=== PATIENT | female | born 1980 | race American Indian/Alaskan Native ===

== ENCOUNTER 2016-10-14 20:52 | Emergency (ER) | payer SELFPAY ==
[2016-10-14 22:27] LABS: Anion Gap 16 mmol/L; Blood Urea Nitrogen 3 mg/dL (7-17); Calcium 7.8 mg/dL (8.4-10.2); Carbon Dioxide 26 mmol/L (22-30); Chloride 101.4 mmol/L (98-107); Glucose 93 mg/dL (65-100); Potassium 3.5 mmol/L (3.6-5.0); Sodium 140 mmol/L (137-145)
[2016-10-14 22:32] LABS: Basophils % (Auto) 0.4 % (0.0-1.8); Eosinophils % (Auto) 0.7 % (0.0-4.3); Hematocrit 34.9 % (30.3-42.9); Hemoglobin 11.5 gm/dl (10.1-14.3); Mean Corpuscular HGB Conc 33 % (30-34); Mean Corpuscular Hemoglobin 27 pg (28-32); Mean Corpuscular Volume 81 fl (79-97); Platelet Count 351 K/mm3 (140-440); Red Blood Count 4.29 M/mm3 (3.65-5.03); White Blood Count 4.8 K/mm3 (4.5-11.0)
[2016-10-15] MEDS ORDERED: ZOFRAN IV ONE (09:06)
[2016-10-15] MEDS ORDERED: NACL 0.9% 1000 ML 1,000 ML IV ONE (09:07)
[2016-10-15] MEDS ORDERED: MORPHINE IV ONE ×2 (09:07→12:14)
[2016-10-15 09:37] VITALS: BP 115/72
--- NOTE | 2016-10-15 09:43 | Emergency Department Report ---
HPI - General Chief Complaint: Chest Pain Time Seen by Provider: 10/15/16 08:50 - HPI HPI: This is a 36-year-old -[place]ux[place]bour[place] female presents to the emergency department with complaint of a 4 day history of nausea and vomiting and a more chronic complaint of some pain below the left breast that has been going on for many weeks. It is associated with shortness of breath but she denies any cough , fever, back pain. Patient says that she has a history of pneumonia in the left lung 2 months ago. She denies any tobacco abuse. She denies illicit drug use. She is not taken anything for symptoms prior to presentation. She has a past medical history of lupus and a past surgical history of gastric bypass. No recent travel or sick contacts at home. ED Past Medical Hx - Past Medical History Previous Medical History?: Yes Additional medical history: lupus - Surgical History Past Surgical History?: Yes Additional Surgical History: gastric bypass - Social History Smoking Status: Never Smoker Substance Use Type: None - Medications Home Medications: Home Medications Medication Instructions Recorded Confirmed Last Taken Type HYDROcodone/APAP 5-325 [Carrington 1 each PO Q6H PRN #10 tablet 10/15/16 Unknown Rx 5-325 mg TAB] Ondansetron [Zofran Odt] 4 mg PO Q8H PRN #10 tab.rapdis 10/15/16 Unknown Rx ED Review of Systems ROS: Stated complaint: CHEST PAIN Other details as noted in HPI Comment: All other systems reviewed and negative Constitutional: denies: chills, fever Eyes: denies: eye pain, eye discharge, vision change ENT: denies: ear pain, throat pain Respiratory: shortness of breath. denies: cough Cardiovascular: chest pain. denies: palpitations Gastrointestinal: nausea, vomiting Genitourinary: denies: urgency, dysuria, discharge Musculoskeletal: denies: back pain, joint swelling, arthralgia Skin: denies: rash, lesions Neurological: denies: headache, weakness, paresthesias Physical Exam - Physical Exam Vital Signs: Vital Signs 10/14/16 10/14/16 10/15/16 21:03 21:17 09:36 Temperature 98.8 F 98.8 F 98.9 F Pulse Rate 107 H 107 H 89 Respiratory 20 18 16 Rate Blood Pressure 141/92 Blood Pressure 141/92 115/72 [Right] O2 Sat by Pulse 100 100 100 Oximetry 10/15/16 09:38 Temperature Pulse Rate Respiratory 16 Rate Blood Pressure Blood Pressure [Right] O2 Sat by Pulse 100 Oximetry Physical Exam: GENERAL: The patient is well-developed well-nourished. HEENT: Normocephalic. Atraumatic. Extraocular motions are intact. Patient has moist mucous membranes. Pupils equal reactive to light bilaterally. NECK: Supple. Trachea is midline. CHEST/LUNGS: Clear to auscultation. There is no respiratory distress noted. Left lower midsternal chest pain is reproducible to palpation of chest wall. HEART/CARDIOVASCULAR: Regular. There is no tachycardia. There is no gallop rub or murmur. ABDOMEN: Abdomen is soft, nontender. Patient has normal bowel sounds. There is no abdominal distention. SKIN: Skin is warm and dry. NEURO: The patient is awake, alert, and oriented. The patient is cooperative. The patient has no focal neurologic deficits. The patient has normal speech MUSCULOSKELETAL: There is no tenderness or deformity. There is no limitation range of motion. There is no evidence of acute injury. ED Course Vital Signs 10/14/16 10/14/16 10/15/16 21:03 21:17 09:36 Temperature 98.8 F 98.8 F 98.9 F Pulse Rate 107 H 107 H 89 Respiratory 20 18 16 Rate Blood Pressure 141/92 Blood Pressure 141/92 115/72 [Right] O2 Sat by Pulse 100 100 100 Oximetry 10/15/16 09:38 Temperature Pulse Rate Respiratory 16 Rate Blood Pressure Blood Pressure [Right] O2 Sat by Pulse 100 Oximetry - EJ/Peripheral Line Neck R Time Out Performed: Yes Indications: nurses unable to establis Skin Cleansed in Sterile Fashion: Yes Size: 20 Dressing Placed: Tegaderm, tape Patient Tolerated Procedure: well ED Medical Decision Making - Lab Data Result diagrams: 10/14/16 21:49 10/14/16 21:49 - EKG Data -: EKG Interpreted by Me EKG shows normal: sinus rhythm, axis, intervals, QRS complexes (mild Q waves to the septal leads and lead 3), ST-T waves Rate: normal - EKG Data When compared to previous EKG there are: previous EKG unavailable Interpretation: other (morphology inconsistent with ST elevation DE, sinus rhythm, Q waves to the septal leads and lead 3) - Radiology Data Radiology results: image reviewed interpreted by me: Chest x-ray did not show any acute process. Heart is normal shape and size. No pneumothorax. No signs of pneumonia seen. - Medical Decision Making 36-year-old female presents to the emergency department with a four-day history of nausea and vomiting and even more chronic complaint of some lower left and midsternal chest pain that has been going on for weeks. EKG did not show any signs of ST elevation DE or any significant dysrhythmia. Labs are unremarkable including negative troponins 2 and a negative d-dimer. No signs of infection. Chest x-ray does not show any acute process. Patient was given some fluid, pain medication and Zofran. She was reevaluated multiple times over multiple hours and is feeling improved. The patient does not have many significant risk factors for coronary artery disease. She has a MICHAEL score of one if her pain is considered angina but it is reproducible and more consistent with costochondritis and therefore most likely a MICHAEL score of 0. She is low on the heart score criteria. The patient has not had any further nausea or vomiting within the emergency department and was able to display oral rehydration. There is no urinary tract infection and the patient is not . For all these reasons the patient appears safe for discharge home at this time. She'll be given a referral for primary care and cardiology. She will return to the ER with any worsening of symptoms or any acute distress. - Differential Diagnosis , gastroenteritis, DE, PE, costochondritis, pneumonia Critical Care Time: No Critical care attestation.: If time is entered above; I have spent that time in minutes in the direct care of this critically ill patient, excluding procedure time. ED Disposition Clinical Impression: Chest pain Qualifiers: Chest pain type: unspecified Qualified Code(s): R07.9 - Chest pain, unspecified Nausea & vomiting Qualifiers: Vomiting type: unspecified Vomiting Intractability: non-intractable Qualified Code(s): R11.2 - Nausea with vomiting, unspecified Disposition: DC-01 TO HOME OR SELFCARE Is pt being admited?: No Condition: Stable Instructions: Chest Pain (ED), Costochondritis (ED), Acute Nausea and Vomiting (ED) Additional Instructions: Please follow-up with a primary care doctor in the next few days. I've given you a referral for a local mosaic tile maker, Dr. Pearson, to follow up regarding your chest pain. Return to the emergency department with any worsening of her symptoms or any acute distress. You've been prescribed a medication that is sedating. Therefore this medication cannot be mixed with alcohol, or taken prior to driving, working, or being responsible for children. Prescriptions: HYDROcodone/APAP 5-325 [Carrington 5-325 mg TAB] 1 each PO Q6H PRN #10 tablet PRN Reason: Pain Ondansetron [Zofran Odt] 4 mg PO Q8H PRN #10 tab.rapdis PRN Reason: Nausea Referrals: PRIMARY CARE, [Primary Care Provider] - 3-5 Days ERICK PEARSON MD [Staff Physician] - 3-5 Days [facility] [Outside] - 3-5 Days [facility] [place] [Outside] - 3-5 Days [facility] [Outside] - 3-5 Days Time of Disposition: 13:10
--- NOTE | 2016-10-15 09:50 | XRay Report ---
AP chest x-ray. History: Chest pain. Findings: The heart and pulmonary vessels are normal. There is blunting of the left costophrenic angle. The lungs are clear. A surgical clip is projected over the left lower thorax. Impression: Blunting of the left costophrenic angle which could be related to a small effusion or pleural scarring. Otherwise no significant findings.
[2016-10-15 12:37] LABS: Bacteria,Urine 1+ /HPF (Negative); Bilirubin,Urine SM (Negative); Blood,Urine NEG (Negative); Ketones,Urine 20 mg/dL (Negative); Leukocyte Esterase,Urine MOD (Negative); Mucus,Urine 3+ /HPF; Nitrite,Urine NEG (Negative)
[2016-10-15] MEDS ORDERED: NORCO 5/325 PO ONE (13:07)
== END 2016-10-15 17:16 | disposition home or self-care (01) ==
LOC: ED 20:52
DX: R07.9 Chest pain, unspecified (principal); R11.2 Nausea with vomiting, unspecified
CPT/HCPCS: 36415; 36569; 71010; 80048; 81001; 81025; 83690; 84484; 85025; 85379; 93005; 93010; 96361; 96374; 96375; 99285; J2270; J2405; J7030